=== PATIENT | female | born 1965 | race Caucasian/White ===

== ENCOUNTER 2016-08-01 15:51 | Emergency (ER) | payer OTHER ==
[~2016-08-01] VITALS: Ht 152.4 cm; Wt 85.7 kg
[~2016-08-01 15:51] MED LIST: ABILIFY 10 MG10 MG PO; ABILIFY 5MG5 MG PO; ADVAIR DISKUS 21 DSK INH; ALBUTEROL SULFAT3 M1 INH; ANTIVERT 25 MG25 MG PO; AZITHROMYCIN500 M3 PO; BACTROBAN OINT.15 GM TOP; BACTROBAN OINT.22 GM TOP; CLONAZEPAM0.5 MG PO; DOXYCYCLINE MO100 MG PO; EXALGO16 MG PO; FOLIC ACID 1 MG PO; GUAFENESIN400 MG PO; HUMALOG KW100 UNIT/1 SC; HUMALOG PEN100 U/ML SC; HYDROXYZINE HCL25 MG PO; HYDROXYZINE PAM25 M1 PO; HYDROXYZINE PAM25 MG PO; HYDROXYZINE PAM50 MG PO; IMDUR60 MG PO; INSULIN LISPRO SC; ISOSORBIDE DINITRATE PO; ISOSORBIDE MON120 M1 PO; JANUVIA 100MG100 MG PO; JANUVIA 50MG50 MG PO; JANUVIA50 M1 PO; KETOCONAZOLE 2120 ML TOP; LEVEMIR 10100 UNITS/ SC; LEVEMIR100 U/ML SC; LEVEMIR100 UNIT/1 SC; LEVOTHROID SO0.05 MG PO; LEVOTHROID0.2 MG PO; LEVOTHYROXIN0.125 MG PO; LEVOTHYROXINE0.2 M2 PO; LEVOTHYROXINE200 MC1 PO; LEVOTHYROXINE50 MCG PO; LISINOPRIL10 MG PO; LYRICA150 MG PO; MACROBID100 MG PO; MECLIZINE HCL25 MG PO; MEDROL DOSEPAK1 PAC PO; MELOXICAM15 MG PO; METOCLOPRAMIDE10 MG PO; METRONIDAZOLE500 M1 PO; MORPHINE SULFAT15 M1 PO; MORPHINE SULFAT15 M4 PO; MORPHINE SULFAT30 M6 PO; MS CONTIN15 M1 PO; MS CONTIN30 MG PO; NASONEX0.05 MG/Ac NAS; NITROSTAT0.4 MG SL; NOVOLOG100 U/ML SC; OMEPRAZOLE40 MG PO; OXYCODONE HCL E10 MG PO; OXYCODONE HCL10 M2 PO; OXYCODONE HYDRO10 M1 PO; OXYCODONE5 MG PO; PERPHENAZINE4 MG PO; PERPHENAZINE8 MG PO; PHENERGAN12.5 MG PO; PHENERGAN25 M2 PR; PRAZOSIN HCL2 M1 PO; PRAZOSIN HYDROCH2 MG PO; PREDNISONE 20MG20 MG PO; PREDNISONE10 M2 PO; PRILOSEC40 M1 PO; PROVENTIL0.09 MG/A1 INH; PSYCH MED; RELPAX 40MG40 MG PO; REMERON 15MG TA15 MG PO; ROBITUSSIN W/CO10 ML PO; SENSIPAR30 M1 PO; SIMVASTATIN20 M2 PO; SIMVASTATIN20 MG PO; SINGULAIR10 MG PO; SYMBICORT 80/4.1 PUF INH; SYNTHROID0.025 MG PO; SYNTHROID175 MCG PO; TESSALON PERLE100 MG PO; TOPIRAMATE25 MG PO; TRAMADOL50 MG PO; TRAZODONE100 MG PO; TRAZODONE150 MG PO; TRIAMCINOL0.1 %/453 TOP; TYLENOL #31 TAB PO; VENTOLIN1 PUF INH; VIBRAMYCIN 100100 MG PO; VIBRAMYCIN100 MG PO; VITAMIN D2000 UNIT PO; VITAMIN D50000 I1 PO; VOLTAREN GEL1% TOP; ZITHROMAX Z-PA250 M1 PO; ZOFRAN 4 MG TABL4 MG PO; ZOFRAN ODT4 M1 PO; ZOFRAN4 M1 SL; [UNRECOGNIZED DRUG - OTHER] PO; [UNRECOGNIZED DRUG - OTHER] PO
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
--- NOTE | 2016-08-01 17:20 | RADIOLOGY REPORT ---
EXAMINATION: XR LUMBOSACRAL SPINE CLINICAL INFORMATION: History of fall, left-sided low back pain. COMPARISON: None. TECHNIQUE: 2 views of the lumbosacral spine. FINDINGS: Mild thoracolumbar dextroscoliosis is present. The height of the lumbar vertebrae is well-maintained. Decreased disc height, endplate osteophyte formations, consistent with mild multilevel degenerative spondylosis related changes are noted at L3-L4, L4-L5. Minimal degenerative spondylosis related changes are noted within the remainder of the lumbosacral spine. The posterior appendages are intact. The paraspinal soft tissues are unremarkable. Postsurgical changes of likely prior cholecystectomy is noted. IMPRESSION: 1. No radiographic evidence of any acute compression fracture of the lumbar vertebrae. 2. Mild thoracolumbar, upper lumbar dextroscoliosis and superimposed mild multilevel degenerative spondylosis.
[2016-08-01] MEDS ORDERED: OXYCODONE HCL5 M1 PO (17:47)
[2016-08-01] MEDS ORDERED: NAPROSYN500 M1 PO (17:47)
[2016-08-01 18:02] VITALS: BP 128/70
== END 2016-08-01 18:03 ==
LOC: ERH 15:51
DX: M54.5 Low back pain (principal)
CPT/HCPCS: 72100

== ENCOUNTER 2016-08-08 13:00 | Emergency (ER) | payer OTHER ==
[~2016-08-08] VITALS: Ht 152.4 cm; Wt 85.7 kg
[~2016-08-08 13:00] MED LIST changes: +NAPROSYN500 M1 PO; +OXYCODONE HCL5 M1 PO
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
[2016-08-08] MEDS ORDERED: KETOROLAC TROME10 M1 PO (15:35)
[2016-08-08 15:50] VITALS: BP 138/80
== END 2016-08-08 15:55 ==
LOC: ERH 13:00
DX: M54.5 Low back pain (principal)
CPT/HCPCS: 96372; J1885

== ENCOUNTER 2016-08-18 20:40 | Emergency (ER) | payer OTHER ==
[~2016-08-18] VITALS: Ht 152.4 cm; Wt 85.3 kg
[~2016-08-18 20:40] MED LIST changes: +KETOROLAC TROME10 M1 PO
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
--- NOTE | 2016-08-18 22:24 | CT SCAN REPORT ---
EXAMINATION: CT HEAD WITHOUT CONTRAST CLINICAL INFORMATION: Head injury with headaches. COMPARISON: Head CT 03/20/2015. TECHNIQUE: Contiguous axial imaging was performed from the skull base to vertex without intravenous administration of contrast. 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 There is no intracranial hemorrhage, hydrocephalus, extra-axial surface collection, midline shift, or other herniation pattern. Garza to white matter differentiation is diffusely maintained without evidence of an evolved acute territorial infarct. The basilar cisterns are preserved. No significant soft tissue abnormality. No acute osseous abnormality. The paranasal sinuses and the mastoid air cells are well-aerated. IMPRESSION: No acute intracranial abnormality. 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
[2016-08-18 23:01] LABS: ABSOLUTE BASOPHIL COUNT 0 /CUMM (0.0-0.2); ABSOLUTE EOSINOPHIL COUNT 0.4 /CUMM (0.0-0.7); ABSOLUTE GRANULOCYTE CT 3.7 /CUMM (1.4-6.5); ABSOLUTE LYMPH COUNT 2.4 /CUMM (1.2-3.4); ABSOLUTE MONOCYTE COUNT 0.6 /CUMM (0.10-0.60); BASOPHIL % 0.6 % (0.0-2.0); EOSINOPHIL % 5.9 % (0-5); GRANULOCYTE % 51.8 % (42.2-75.2); HEMATOCRIT 43.7 % (37-47); MEAN CORPUSCULAR HGB 26.7 PG (27.0-31.0); MEAN CORPUSCULAR HGB CONC 32.8 G/DL (33.0-37.0); MEAN CORPUSCULAR VOLUME 81.6 FL (81.0-99.0); MEAN PLATELET VOLUME 10.7 FL (7.4-10.4); PLATELET COUNT 177 /CUMM (130-400); RBC DISTRIBUTION WIDTH 15.6 % (11.5-14.5); RED BLOOD CELL CT 5.36 /CUMM (4.20-5.40); WHITE BLOOD CELL COUNT 7.2 /CUMM (4.8-10.8)
[2016-08-18] MEDS ORDERED: CIPRO500 M1 PO (23:10)
[2016-08-18 23:34] VITALS: BP 138/84
== END 2016-08-18 23:35 ==
LOC: ERH 20:40
PROVIDERS: Pediatrics
DX: N39.0 Urinary tract infection, site not specified (principal); S09.90XA Unspecified injury of head, initial encounter; R82.99 Other abnormal findings in urine; W19.XXXA Unspecified fall, initial encounter
CPT/HCPCS: 81001; 81025; 96372; J1815

== ENCOUNTER 2016-08-29 12:10 | Emergency (ER) | payer OTHER ==
[~2016-08-29] VITALS: Ht 152.4 cm; Wt 85.3 kg
[~2016-08-29 12:10] MED LIST changes: +CIPRO500 M1 PO
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
[2016-08-29 13:33] LABS: ABSOLUTE BASOPHIL COUNT 0 /CUMM (0.0-0.2); ABSOLUTE EOSINOPHIL COUNT 0.2 /CUMM (0.0-0.7); ABSOLUTE GRANULOCYTE CT 6.8 /CUMM (1.4-6.5); ABSOLUTE LYMPH COUNT 2.2 /CUMM (1.2-3.4); ABSOLUTE MONOCYTE COUNT 0.6 /CUMM (0.10-0.60); BASOPHIL % 0.5 % (0.0-2.0); EOSINOPHIL % 1.9 % (0-5); GRANULOCYTE % 69.1 % (42.2-75.2); HEMATOCRIT 48.8 % (37-47); MEAN CORPUSCULAR HGB 26.7 PG (27.0-31.0); MEAN CORPUSCULAR HGB CONC 33.5 G/DL (33.0-37.0); MEAN CORPUSCULAR VOLUME 79.8 FL (81.0-99.0); MEAN PLATELET VOLUME 10.3 FL (7.4-10.4); PLATELET COUNT 185 /CUMM (130-400); RBC DISTRIBUTION WIDTH 15.6 % (11.5-14.5); RED BLOOD CELL CT 6.12 /CUMM (4.20-5.40); WHITE BLOOD CELL COUNT 9.8 /CUMM (4.8-10.8)
[2016-08-29 14:34] VITALS: BP 97/63
== END 2016-08-29 14:57 ==
LOC: ERH 12:10
PROVIDERS: Emergency Medicine
DX: E10.65 Type 1 diabetes mellitus with hyperglycemia (principal); J40 Bronchitis, not specified as acute or chronic; F17.210 Nicotine dependence, cigarettes, uncomplicated
CPT/HCPCS: 1263; 81003

== ENCOUNTER 2017-02-17 18:30 | Emergency (ER) | payer OTHER ==
[~2017-02-17 18:30] MED LIST changes: +ABILIFY10 M1 PO; +ALBUTEROL2.5 MG/3 M INH/SOL; +ASPIRIN EC81 M1 PO; -FOLIC ACID 1 MG PO; +FOLIC ACID1 M1 PO; +FUROSEMIDE40 M1 PO; +HYDROXYZINE HCL25 M2 PO; -HYDROXYZINE HCL25 MG PO; +HYDROXYZINE PAM50 M1 PO; -HYDROXYZINE PAM50 MG PO; +LISINOPRIL10 M1 PO; -LISINOPRIL10 MG PO; +LYRICA150 M1 PO; -LYRICA150 MG PO; -METOCLOPRAMIDE10 MG PO; +NALTREXONE HCL50 M1 PO; +NASONEX17 GM NASB; +NITROSTAT0.4 M1 SL; -NITROSTAT0.4 MG SL; +NIZORAL120 ML TOP; +OMEPRAZOLE40 M1 PO; -OMEPRAZOLE40 MG PO; +PERPHENAZINE4 M1 PO; +PERPHENAZINE8 M1 PO; -PERPHENAZINE8 MG PO; +PROVENTIL HFA6.7 GM INH; +REGLAN10 M1 PO; -REMERON 15MG TA15 MG PO; +REMERON15 M2 PO; +RESTASIS1 EACH OU; +SINGULAIR10 M1 PO; +SYMBICORT 80-10.2 GM INH; +TRAZODONE HCL100 M1 PO; -VOLTAREN GEL1% TOP; +VOLTAREN100 GM TOP
[2017-02-17 18:41] VITALS: BP 125/86
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
[2017-02-17] MEDS ORDERED: KEFLEX500 M1 PO ×2 (20:40→20:54)
[2017-02-17] MEDS ORDERED: IBUPROFEN800 M1 PO ×2 (20:41→20:54)
[2017-02-19] MEDS ORDERED: KEFLEX500 M1 PO (14:20)
== END 2017-02-17 20:54 ==
LOC: ERH 18:30
DX: M79.642 Pain in left hand (principal)

== ENCOUNTER 2017-10-07 14:05 | Emergency (ER) | payer OTHER ==
[~2017-10-07] VITALS: Ht 152.4 cm; Wt 86.2 kg
[~2017-10-07 14:05] MED LIST changes: +IBUPROFEN800 M1 PO; +KEFLEX500 M1 PO; +MARI INH; +MOBIC15 M1 PO; +PERCOCET 5-3251 EACH PO; +VESICARE10 MG PO; +ZITHROMAX250 M2 PO; +ZOFRAN ODT4 M1 SL
[2017-10-07 14:25] VITALS: BP 119/82
== END 2017-10-07 16:17 | disposition admitted as inpatient to this hospital (09) ==
LOC: ERH 14:05
DX: F32.9 Major depressive disorder, single episode, unspecified (principal)
CPT/HCPCS: 80307; G0480

== ENCOUNTER 2017-11-08 14:08 | Emergency (ER) | payer OTHER ==
[~2017-11-08] VITALS: Ht 152.4 cm; Wt 80.3 kg
[2017-11-08 16:12] LABS: ABSOLUTE BASOPHIL COUNT 0.1 /CUMM (0.0-0.2); ABSOLUTE EOSINOPHIL COUNT 0.1 /CUMM (0.0-0.7); ABSOLUTE GRANULOCYTE CT 8.5 /CUMM (1.4-6.5); ABSOLUTE LYMPH COUNT 2.1 /CUMM (1.2-3.4); ABSOLUTE MONOCYTE COUNT 0.6 /CUMM (0.10-0.60); BASOPHIL % 0.6 % (0.0-2.0); EOSINOPHIL % 0.9 % (0-5); GRANULOCYTE % 74.8 % (42.2-75.2); HEMATOCRIT 46.2 % (37-47); MEAN CORPUSCULAR HGB 29.4 PG (27.0-31.0); MEAN CORPUSCULAR HGB CONC 33.3 G/DL (33.0-37.0); MEAN CORPUSCULAR VOLUME 88.2 FL (81.0-99.0); MEAN PLATELET VOLUME 10.1 FL (7.4-10.4); PLATELET COUNT 208 /CUMM (130-400); RBC DISTRIBUTION WIDTH 14.4 % (11.5-14.5); RED BLOOD CELL CT 5.24 /CUMM (4.20-5.40); WHITE BLOOD CELL COUNT 11.3 /CUMM (4.8-10.8)
--- NOTE | 2017-11-08 17:26 | CT SCAN REPORT ---
EXAMINATION: CT ABDOMEN AND PELVIS WITHOUT CONTRAST CLINICAL INFORMATION: Right lower quadrant abdominal pain. Assess for appendicitis. COMPARISON: 06/28/2017. TECHNIQUE: Multidetector volumetric imaging was performed from the superior aspect of the liver through the pubic symphysis. Sagittal and coronal reformatted images were obtained on the technologist's workstation. DLP: 718 mGy-cm FINDINGS: LUNG BASES: Minor dependent changes in the right lung base. The imaged heart and pericardium appear unremarkable. LIVER, GALLBLADDER, AND BILIARY TREE: The liver is normal in size, shape, and attenuation. No focal hepatic lesion or biliary ductal dilatation is present. There has been prior cholecystectomy. PANCREAS: Unremarkable. SPLEEN: Unremarkable. ADRENAL GLANDS: Unremarkable. KIDNEYS AND URETERS: The kidneys are normal in size, shape, and attenuation. No hydronephrosis, hydroureter, or calculi seen. No perinephric stranding. BLADDER: Under distended. Unremarkable. GASTROINTESTINAL TRACT: The small and large bowel are normal in caliber without inflammatory change. A few distal colonic diverticula are noted. The appendix is normal in caliber without stranding. There is some minor high density material within it likely inspissated debris. ABDOMINAL WALL: No significant hernia is appreciated. LYMPH NODES: No adenopathy. VASCULAR: The caliber of the aorta is normal. PELVIC VISCERA: Unremarkable. OSSEOUS STRUCTURES: No acute osseous abnormalities. There is a mild dextroconvex thoracolumbar scoliosis and multilevel spondylosis. Near-complete intervertebral disc height loss asymmetrically on the left at L1-L2 and asymmetrically on the right at L3-L4 and bilaterally at L4-L5. At L4-L5 a partially calcified disc protrusion moderately narrows the canal. IMPRESSION: No acute intra-abdominal or intrapelvic pathology. Normal appendix. Multilevel lumbar spondylosis and mild dextroconvex scoliosis with a moderate canal stenosis at L4-L5.
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
[2017-11-08] MEDS ORDERED: ZOFRAN ODT4 M1 SL (19:16)
[2017-11-08 19:39] VITALS: BP 110/68
== END 2017-11-08 19:42 ==
LOC: ERH 14:08
PROVIDERS: Physician Assistant Medical
DX: R11.2 Nausea with vomiting, unspecified (principal)
CPT/HCPCS: 74176; 96374; 96375; J0131; J1815; J2405

== ENCOUNTER 2017-11-28 00:52 | Emergency (ER) | payer OTHER ==
[~2017-11-28] VITALS: Ht 152.4 cm; Wt 82.1 kg
[~2017-11-28 00:52] MED LIST changes: +PERPHENAZINE2 M1 PO; -PERPHENAZINE8 M1 PO
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
[2017-11-28 05:58] VITALS: BP 102/64
[2017-11-29] MEDS ORDERED: LEVOTHYROXINE200 MC1 PO (23:36)
[2018-03-04] MEDS ORDERED: OMEPRAZOLE20 M3 PO (19:45)
[2018-03-04] MEDS ORDERED: ZOFRAN ODT4 M1 SL (19:45)
[2018-03-04] MEDS ORDERED: DICYCLOMINE HCL10 M1 PO (19:46)
== END 2017-11-28 05:59 ==
LOC: ERH 00:52
DX: E11.65 Type 2 diabetes mellitus with hyperglycemia (principal)
CPT/HCPCS: 96372

== ENCOUNTER 2017-11-29 14:55 | Inpatient (IN) | payer OTHER ==
[~2017-11-29] VITALS: Ht 165.1 cm; Wt 84.8 kg
[2017-11-29 16:42] LABS: ABSOLUTE BASOPHIL COUNT 0 /CUMM (0.0-0.2); ABSOLUTE EOSINOPHIL COUNT 0.3 /CUMM (0.0-0.7); ABSOLUTE GRANULOCYTE CT 7.1 /CUMM (1.4-6.5); ABSOLUTE LYMPH COUNT 2.4 /CUMM (1.2-3.4); ABSOLUTE MONOCYTE COUNT 0.7 /CUMM (0.10-0.60); BASOPHIL % 0.4 % (0.0-2.0); EOSINOPHIL % 2.4 % (0-5); GRANULOCYTE % 67.8 % (42.2-75.2); HEMATOCRIT 40.2 % (37-47); MEAN CORPUSCULAR HGB 28.5 PG (27.0-31.0); MEAN CORPUSCULAR HGB CONC 32.8 G/DL (33.0-37.0); MEAN CORPUSCULAR VOLUME 86.9 FL (81.0-99.0); MEAN PLATELET VOLUME 10.2 FL (7.4-10.4); PLATELET COUNT 222 /CUMM (130-400); RBC DISTRIBUTION WIDTH 14.2 % (11.5-14.5); RED BLOOD CELL CT 4.63 /CUMM (4.20-5.40); WHITE BLOOD CELL COUNT 10.5 /CUMM (4.8-10.8)
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
--- NOTE | 2017-11-29 20:30 | RADIOLOGY REPORT ---
EXAMINATION: XR PORTABLE CHEST CLINICAL INFORMATION: Hypotension. COMPARISON: Chest x-ray dated 10/27/2017 and 06/28/2017. TECHNIQUE: Portable AP semiupright view of the chest was obtained. FINDINGS: The cardiomediastinal silhouette is enlarged, likely accentuated by the portable technique. Tortuosity and ectasia of the aorta is also seen. Lungs bilaterally are symmetrically expanded and are suboptimally evaluated due to suboptimal technique and patient's body habitus. There is some linear opacity seen in the lung bases bilaterally, likely representing subsegmental atelectasis. No definite focal consolidation, effusion or pneumothorax is seen. Bony structures are unremarkable. IMPRESSION: Limited exam. Findings of bibasilar subsegmental atelectasis, ectatic and tortuous aorta, and prominent heart size seen.
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
[2017-11-29] MEDS ORDERED: LEVOTHYROXINE200 MC1 PO (23:36)
--- NOTE | 2017-11-30 00:26 | CT SCAN REPORT ---
EXAMINATION: CT HEAD WITHOUT CONTRAST CLINICAL INFORMATION: Fall with head trauma and headache. COMPARISON: 08/13/2017 TECHNIQUE: Contiguous axial imaging was performed from the skull base to vertex without intravenous contrast. DLP: 620 mGy-cm. FINDINGS: There is no evidence of acute intracranial hemorrhage or territorial infarction. No abnormal mass effect or midline shift is seen. Chronic high left parietal infarct. Garza to white matter differentiation is otherwise well preserved. No extra-axial fluid collections are identified. No hydrocephalus. No significant volume loss. There is no abnormal attenuation within the brain parenchyma. The osseous structures and soft tissues are normal. The mastoid air cells and visualized portions of the paranasal sinuses are well aerated. IMPRESSION: No acute intracranial pathology.
[2017-11-30 02:10] VITALS: BP 104/50
[2017-11-30] MEDS ORDERED: WELLBUTRIN SR150 M1 PO (02:54)
--- NOTE | 2017-11-30 04:01 | Admission Certification ---
Admission Certification Certification Statement - As attending physician, I certify that at the time of - admission, based on clinical presentation, severity of - symptoms, need for further diagnostic testing and - therapeutic interventions, and risk of adverse outcomes - without in-hospital treatment, in my clinical assessment, - this patient requires an acute hospital stay for a minimum - of two nights or longer. I have also considered psychsocial - factors such as support system, advanced age, financial - issues, cognitive issues, and failed out-patient treatments, - past re-admission history, safety of patient, and lack of - compliance as applicable. Specific rationale supporting this admission is: Nausea, vomiting, hypotension, bradycardia, acute kidney injury
[2017-11-30 07:21] VITALS: BP 112/68
--- NOTE | 2017-11-30 08:09 | PN- Housestaff ---
Rodrigo CERVANTES,Elias 11/30/17 0809: Subjective Follow-up For: hypotension bradycardia STEPHY Tele-Events Since Last Visit: sinus rhythm Subjective: denies abdominal pain or nausea blood pressure improved with IVFs no more episodes of bradycardia no new complaints Review of Systems Constitutional: Reports: see HPI. Objective Last 24 Hrs of Vital Signs/I&O Vital Signs Date Time Temp Pulse Resp B/P B/P Pulse O2 O2 Flow FiO2 Mean Ox Delivery Rate 11/30 720 97.8 66 20 112/68 96 Room Air 11/30 0210 98.2 54 20 104/50 95 Room Air 11/29 2349 97.8 66 20 95/60 94 Room Air 11/29 2148 90/60 05/08 2126 56 91/55 /08 2125 98.1 56 20 91/55 92 Room Air 11/29 1916 97.9 64 22 98/46 92 Room Air 11/29 1813 78/56 11/29 1550 18 80/40 08 1534 98.7 87 18 74/51 97 Room Air Room Air Intake & Output 11/30 1600 11/30 0811/30 0000 Intake Total 1105 0 Output Total Balance 1105 0 Intake, IV 625 Intake, Oral 480 0 Patient 83.092 kg Weight Weight Bed scale Measurement Method Physical Exam General Appearance: Alert, Oriented X3, Cooperative, No Acute Distress, face is flushed Lungs: Clear to Auscultation, Normal Air Movement Abdomen: Normal Bowel Sounds, Soft, No Tenderness, No Masses Extremities: No Clubbing, No Cyanosis, No Edema, Normal Pulses Current Medications: Current Medications Sig/Zoila Start time Last Medication Dose Route Stop Time Status Admin Acetaminophen 650 MG Q6P PRN 11/29 2245 AC PO Acetaminophen 0 .STK-MED ONE 11/29 1638 DC IV Acetaminophen 1,000 MG ONCE ONE 11/29 1615 DC 11/29 N/A 1 UNIT IV 11/29 1629 1642 Albuterol Sulfate 2 PUF Q4H PRN 11/29 2330 AC INH Aspirin Buffered 81 MG DAILY 11/30 899 AC PO Budesonide/ 2 PUF BID 11/30 899 CAN Formoterol Fumarate INH Bupropion HCl 150 MG BID 11/30 899 AC PO Heparin Sodium 5,000 UNIT Q8 11/30 599 AC (Porcine) SC Hydrocodone Bitart/ 1 TAB Q6P PRN 11/29 2245 AC Acetaminophen PO Insulin Aspart 0 TIDAC 12/01 799 AC SC Insulin Detemir 14 UNITS BID 11/30 899 DC SC Insulin Detemir 8 UNITS BID 11/30 899 AC SC Levothyroxine Sodium 0.2 MG DAILY AC 11/30 699 AC PO Mirtazapine 15 MG QPM 11/30 2100 AC PO Nicotine 7 MG DAILY 11/30 899 AC TOP Omeprazole 40 MG DAILY AC 11/30 699 AC 11/30 PO 0516 Ondansetron HCl 4 MG Q8P PRN 11/29 2245 AC IV Ondansetron HCl 0 .STK-MED ONE 11/29 1638 DC .ROUTE Ondansetron HCl 4 MG ONCE ONE 11/29 1615 DC 11/29 IV 11/29 1616 1642 Pregabalin 150 MG BID 11/30 899 AC PO Sodium Chloride 1,000 ML Q8H 11/30 0130 AC 11/30 IV 0220 Sodium Chloride 1,000 ML BOLUS ONE 11/29 2200 DC / IV 11/29 2259 2323 Sodium Chloride 1,000 ML BOLUS ONE 11/29 2130 DC 05/ IV 11/29 2229 2150 Sodium Chloride 1,000 ML BOLUS ONE 11/29 1845 DC / IV 11/29 1944 1800 Sodium Chloride 1,000 ML BOLUS ONE 11/29 1600 DC 05/08 IV / 1659 1610 Last 24 Hrs of Lab/Bhavin Results Last 24 Hrs of Labs/Mics: Laboratory Tests 11/30/17 0645: Troponin I Cancelled 11/30/17 0645: Anion Gap 8, Estimated GFR 32 L, BUN/Creatinine Ratio 18.8, Troponin I < 0.01 11/30/17 0047: Anion Gap 8, Estimated GFR 28 L, BUN/Creatinine Ratio 20.0, Troponin I < 0.01 11/29/17 1917: Urine Opiates Screen < 100, Methadone Screen 54, Barbiturate Screen < 60, Ur Phencyclidine Scrn < 6.00, Amphetamines Screen 409, U Benzodiazepines Scrn < 85, Urine Cocaine Screen < 50, Urine Cannabis Screen 69.30 H, Urine Color YEL, Urine Clarity HAZY H, Urine pH 6.0, Ur Specific [place] 1.015, Urine Protein NEG, Urine Ketones NEG, Urine Nitrite NEG, Urine Bilirubin NEG, Urine Urobilinogen 0.2, Ur Leukocyte Esterase NEG, Ur Microscopic SEDIMENT EXAMINED, Urine RBC RARE, Urine WBC 1-3 H, Ur Epithelial Cells MANY H, Urine Bacteria MANY H, Urine Mucus RARE, Urine Hemoglobin NEG, Urine Glucose 500 H 11/29/17 1915: Lactic Acid 0.7 11/29/17 1610: Anion Gap 12, Estimated GFR 21 L, BUN/Creatinine Ratio 17.9, Glucose 146 H, Hemoglobin A1c 12.0 H, Lactic Acid 1.7, Calcium 11.5 H, Phosphorus 5.2 H, Magnesium 1.8, Total Bilirubin 0.8, AST 22, ALT 24, Alkaline Phosphatase 101, Total Protein 7.2, Albumin 4.2, Globulin 3.0, Albumin/Globulin Ratio 1.4, Amylase 33, Lipase 27, TSH 4.300 H, Free T4 2.45 H, Cortisol PM Sample 21.7 H , CBC w Diff NO MAN DIFF REQ, RBC 4.63, MCV 86.9, MCH 28.5, MCHC 32.8 L, RDW 14.2, MPV 10.2, Gran % 67.8, Lymphocytes % 23.2, Monocytes % 6.2, Eosinophils % 2.4, Basophils % 0.4, Absolute Granulocytes 7.1 H, Absolute Lymphocytes 2.4, Absolute Monocytes 0.7 H, Absolute Eosinophils 0.3, Absolute Basophils 0 Microbiology 11/30 0754 UPPER RESP: Surveillance Culture - ORD 11/30 0754 GI: Surveillance Culture - ORD 11/30 0413 NASOPHARYN: Influenza Virus A & B Rapid Smear - COMP 11/29 192 BLOOD: Blood Culture - RECD 11/29 175 BLOOD: Blood Culture - RECD Assessment/Plan Assessment: 50 year old female with past medical history significant for diabetes mellitus, asthma, hypertension, PTSD, schizoaffective disorder, hypothyroidism, opioid dependence for complex regional pain syndrome, history of alcohol dependence, and primary hyperparathyroidism who was sent in by a physician with hypotension after being evaluated with complaints of weakness, lightheadedness, nausea and vomiting. Hypotension/Bradycardia Blood pressure 80/40, pulse 56 Monitor on telemetry Intravascular volume resuscitation Continue maintenance fluids Check orthostatic vital signs Troponins and EKGs negative x 2 for myocardial ischemia Cardiology consultation Check TSH/cortisol Likely hypovolemic hypotension with poorly controlled DM, gastroparesis, recent vomiting STEPHY: Creatinine 2.4 on presentation, improved to 1.7 this morning with intravenous fluids 3 L normal saline IV bolus in the ED Continue maintenance fluids Trend renal function Avoid nephrotoxins, lisinopril and lasix held Diabetes mellitus: Continue levemir 6 units BID Diabetic diet Accuchecks TIDAC Novolog insulin sliding scale Hypercalcemia: Calcium 11.5, treated with IVFs Primary hyperparathyroidism Continue cinacalcet Repeat calcium, magnesium, and phosphorus in the morning Hypertension: Lisinopril held Hyperlipidemia: Continue statin therapy Hypothyroidism: Continue synthroid 200mcg PTSD and schizoaffective disorder: Continue fluphenazine 5mg am 10mg pm Continue benztropine, prazosin, bupropion, hydroxyzine, and mirtazapine Diabetic diet DVT ppx-heparin 5000 units subcutaneous q8h Full code Problem List: 1. Acute kidney injury 2. Hypotension 3. DM w/ gastroparesis & neuropat 4. Nausea and vomiting Pain Ratin Pain Location: n/a Pain Goal: Pain 4 or less Pain Plan: prn Tomorrow's Labs & Rationales: cbc, bep Randy Herndon MD 11/30/17 1125: Attending MD Review Statement Attending Statement Attending MD Statement: examined this patient, discuss w/resident/PA/COMMUNICATIONS ASSISTANT, agreed w/resident/PA/COMMUNICATIONS ASSISTANT, reviewed EMR data (avail) Attending Assessment/Plan: 52F PMH poorly controlled Type 2 DM, HTN, HLD, asthma, diabetic gastroparesis, PTSD/schizoaffective disorder, hypothyroidism, complex regional pain syndrome on Lyrica and medical marijuana, primary hyperparathyroidism admitted with hypotension with intractable nausea and vomiting with STEPHY. Patient looks well today, does not have any complaints. Creatinine improved slightly. Hypotension resolved. Did not tolerate breakfast. Sinus bradycardia overnight to 50's, resolved today. HbA1c is 12, overnight fingerstick 155. 1. Hypotension 2. Dehydration 3. Acute gastroenteritis 4. Diabetic gastroparesis 5. STEPHY 6. Sinus bradycardia Plan - Continue on telemetry for now, if bradycardia remains absent can consider discontinuing tomorrow - Verify home medications - IV hydration - Zofran PRN nausea - Reglan PRN vomiting - Monitor renal function - GI and cardiology consults - Continue home medications - DVT PPx - IV hydration - Zofran PRN nausea - Reglan PRN vomiting - Monitor renal function - GI and cardiology consults - Continue home medications - DVT PPx
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
[2017-11-30] MEDS ORDERED: SENSIPAR30 M1 PO (14:42)
[2017-11-30 16:00] VITALS: BP 92/50
[2017-11-30 18:05] VITALS: BP 102/68
[2017-12-01 06:51] VITALS: BP 128/78
--- NOTE | 2017-12-01 07:14 | PN- Housestaff ---
Rodrigo CERVANTES,Elias 12/01/17 0714: Subjective Follow-up For: hypotension bradycardia STEPHY gastroenteritis/gastroparesis/N/V Tele-Events Since Last Visit: sinus rhythm/sinus kallie (into mid 40s this morning) Subjective: patient has no complaints no more hypotension or lightheaded feeling no more episodes of nausea or vomiting anxious to be discharged Review of Systems Constitutional: Reports: see HPI. Objective Last 24 Hrs of Vital Signs/I&O Vital Signs Date Time Temp Pulse Resp B/P B/P Pulse O2 O2 Flow FiO2 Mean Ox Delivery Rate 12/01 0551 98.1 59 20 128/78 93 Room Air 11/30 2043 56 124/70 11/30 1805 102/68 11/30 1600 98.2 60 18 92/50 95 Room Air 11/30 1157 Room Air 11/30 1129 95 Room Air 11/30 0900 Room Air Intake & Output 12/01 1600 12/01 0800 12/01 0000 Intake Total 600 2100 Output Total Balance 600 2100 Intake, IV 300 1500 Intake, Oral 300 600 Number 1 Bowel Movements Patient 84.822 kg Weight Weight Bed scale Measurement Method Physical Exam General Appearance: Alert, Oriented X3, Cooperative, No Acute Distress, face flushed, obese Cardiovascular: Regular Rate, Normal S1, Normal S2, No Murmurs Lungs: Clear to Auscultation, Normal Air Movement Abdomen: Normal Bowel Sounds, Soft, No Tenderness, No Masses Extremities: No Clubbing, No Cyanosis, No Edema, Normal Pulses Current Medications: Current Medications Sig/Zoila Start time Last Medication Dose Route Stop Time Status Admin Acetaminophen 650 MG .STK-MED ONE 11/30 1011 DC PO 11/30 101 Acetaminophen 650 MG Q6P PRN 11/29 2245 AC 12/01 PO 0419 Albuterol Sulfate 3 ML BID 11/30 2099 AC 11/30 INH 2054 Albuterol Sulfate 2 PUF Q4H PRN 11/29 2330 AC INH Aspirin Buffered 81 MG DAILY 11/30 899 AC 12/01 PO 08 Benztropine Mesylate 0.5 MG AT BEDTIME 11/30 2099 AC 11/30 PO 204 Bupropion HCl 150 MG DAILY 12/01 899 AC 12/01 PO 0824 Bupropion HCl 150 MG BID 11/30 899 DC 11/30 PO 0946 Cinacalcet 30 MG DAILY 11/30 1056 AC 12/01 PO 0824 Fluphenazine HCl 10 MG AT BEDTIME 11/30 2100 AC 11/30 PO 2042 Fluphenazine HCl 5 MG DAILY 11/30 1052 AC 12/01 PO 0824 Heparin Sodium 5,000 UNIT Q8 11/30 0600 AC (Porcine) SC Hydrocodone Bitart/ 1 TAB Q6P PRN 11/29 2245 DC Acetaminophen PO Hydroxyzine HCl 25 MG TID PRN 11/30 1100 AC PO Insulin Aspart 0 TIDAC 11/30 1700 AC 11/30 SC 1721 Insulin Aspart 0 TIDAC 11/30 0800 DC 11/30 SC 1156 Insulin Detemir 6 UNITS BID 11/30 2100 DC SC Insulin Detemir 10 UNITS BID 11/30 2100 AC 12/01 SC 0824 Insulin Detemir 8 UNITS BID 11/30 0900 DC 11/30 SC 0942 Ipratropium [place] 2.5 ML BID 11/30 2100 AC 11/30 INH 2054 Levothyroxine Sodium 0.2 MG DAILY AC 11/30 0700 AC 12/01 PO 0604 Metoclopramide HCl 10 MG 4 TIMES/DAY PRN 11/30 1500 AC PO Mirtazapine 15 MG QPM 11/30 2100 AC 11/30 PO 2115 Montelukast Sodium 10 MG AT BEDTIME 11/30 2100 AC 11/30 PO 204 Montelukast Sodium 10 MG AT BEDTIME 11/30 2100 CAN PO Montelukast Sodium 10 MG DAILY 11/30 1442 DC PO Nicotine 7 MG DAILY 11/30 899 AC TOP Omeprazole 40 MG DAILY AC 11/30 0700 AC 11/30 PO 0516 Ondansetron HCl 4 MG Q8P PRN 11/29 2245 AC IV Prazosin HCl 2 MG AT BEDTIME 11/30 2100 AC 11/30 PO 2043 Pregabalin 150 MG BID 11/30 899 AC 12/01 PO 0824 Sodium Chloride 1,000 ML Q8H 11/30 0130 DC 11/30 IV 11/30 2200 1722 Last 24 Hrs of Lab/Bhavin Results Last 24 Hrs of Labs/Mics: Laboratory Tests 12/01/17 0705: Sodium Pending, Potassium Pending, Chloride Pending, Carbon Dioxide Pending, Anion Gap Pending, BUN Pending, Creatinine Pending, BUN/Creatinine Ratio Pending , Calcium Pending, Phosphorus Pending, Magnesium Pending Assessment/Plan Assessment: 50 year old female with past medical history significant for diabetes mellitus, asthma, hypertension, PTSD, schizoaffective disorder, hypothyroidism, opioid dependence for complex regional pain syndrome, history of alcohol dependence, and primary hyperparathyroidism who was sent in by a physician with hypotension after being evaluated with complaints of weakness, lightheadedness, nausea and vomiting. Hypotension: Likely hypovolemic hypotension with poorly controlled DM, gastroparesis, recent vomiting History of gastroparesis, poorly controlled DM a1c 12, and probable gastroenteritis w chills Blood pressure 80/40, pulse 56 No arrhythmias on telemetry Received intravascular volume resuscitation and currently normotensive Antihypertensives held, ACEi/diuretics Troponins and EKGs negative x 2 for myocardial ischemia Bradycardia to HR 40s this morning, cardiology consulted, will obtain records f /u recs STEPHY: Creatinine 2.4 on presentation, improved to 1.1 this morning after intravenous fluids Continue to hold lisinopril and lasix Trend renal function Avoid nephrotoxins Likely prerenal secondary to recent vomiting (gastroenteritis) and medications Diabetes mellitus: On Levemir 10 units BID, patient states 14 bid, med claim 6 unit bid ([facility] ) Diabetic diet Accuchecks TIDAC, 100-295 Novolog insulin sliding scale Hemoglobin a1c 12 Endocrinology consulted Hypercalcemia: Calcium 11.5, treated with IVFs, resolved on AM labs Primary hyperparathyroidism Continue cinacalcet 30MG PO BID Replete magnesium Follow up with Dr. Carty as an outpatient, recommended parathyroidectomy Avoid diuretics and continue Vit D supplementation Hypertension: Lisinopril and lasix held Hypotensive on arrival, normotensive currently Hyperlipidemia: Continue statin therapy Hypothyroidism: Continue synthroid 200mcg PTSD and schizoaffective disorder: Continue fluphenazine 5mg am 10mg pm Continue benztropine, prazosin, bupropion, hydroxyzine, and mirtazapine Psychiatry consult pending for medication recommendations Diabetic diet DVT ppx-heparin 5000 units subcutaneous q8h Full code Problem List: 1. Diabetes mellitus 2. Hypotension 3. Acute kidney injury 4. Vomiting 5. DM w/ gastroparesis & neuropat Pain Ratin Pain Location: n/a Pain Goal: Pain 4 or less Pain Plan: prn Tomorrow's Labs & Rationales: bep if not discharged Randy Herndon MD 12/01/17 1035: Attending MD Review Statement Attending Statement Attending MD Statement: examined this patient, discuss w/resident/PA/CARDROOM HAND, agreed w/resident/PA/CARDROOM HAND, reviewed EMR data (avail) Attending Assessment/Plan: 52F PMH poorly controlled Type 2 DM, HTN, HLD, asthma, diabetic gastroparesis, PTSD/schizoaffective disorder, hypothyroidism, complex regional pain syndrome on Lyrica and medical marijuana, primary hyperparathyroidism admitted with hypotension with intractable nausea and vomiting with STEPHY. Improved today, tolerating diet, STEPHY resolved, sinus kallie in high 50's-low 60' s. 1. Hypotension 2. Dehydration 3. Acute gastroenteritis 4. Diabetic gastroparesis 5. STEPHY 6. Sinus bradycardia Plan - Discontinue telemetry, likely discharge later today if no intervention on parathyroid glands - Will adjust home medications - Monitor renal function as outpatient - Outpatient endocrine and cardiology follow up
--- NOTE | 2017-12-01 08:12 | PN- Student ---
Zohaib Bahena 12/01/17 0807: Subjective Subjective: No acute events overnight. Patient resting in bed. Patient feeling ready to be discharge. No nausea, vomiting, palpitation, dizziness or lightheaderness. Objective Objective: PE: General: obese alert and oriented HEENT: NCAT, anicteric sclera,moist oral mucosa, no exudate CVS: normal S1 and S2 Lungs: clear bilateral, no added sounds Abdomen: presented bowel sounds, soft, nontender , nondistended Extremities: patent pulses, no edema Results Results: Vital Signs Date Time Temp Pulse Resp B/P B/P Pulse O2 O2 Flow FiO2 Mean Ox Delivery Rate 12/01 0651 98.1 59 20 128/78 93 Room Air 11/30 2043 56 124/70 11/30 1805 102/68 11/30 1600 98.2 60 18 92/50 95 Room Air 11/30 1157 Room Air 11/30 1129 95 Room Air Intake & Output 12/01 1600 12/01 0800 12/01 0000 Intake Total 600 2100 Output Total Balance 600 2100 Intake, IV 300 1500 Intake, Oral 300 600 Number 1 Bowel Movements Patient 187 lb Weight Weight Bed scale Measurement Method Laboratory Tests 12/01/17 0705: Anion Gap 8, Estimated GFR 52 L, BUN/Creatinine Ratio 14.5, Calcium 9.9, Phosphorus 2.5, Magnesium 1.5 L 11/30/17 0645: Troponin I Cancelled 11/30/17 0645: Anion Gap 8, Estimated GFR 32 L, BUN/Creatinine Ratio 18.8, Troponin I < 0.01, WBC Cancelled, RBC Cancelled, Hgb Cancelled, Hct Cancelled, MCV Cancelled, MCH Cancelled, MCHC Cancelled, RDW Cancelled, Plt Count Cancelled, MPV Cancelled 11/30/17 0047: Anion Gap 8, Estimated GFR 28 L, BUN/Creatinine Ratio 20.0, Troponin I < 0.01 11/29/17 1917: Urine Opiates Screen < 100, Methadone Screen 54, Barbiturate Screen < 60, Ur Phencyclidine Scrn < 6.00, Amphetamines Screen 409, U Benzodiazepines Scrn < 85, Urine Cocaine Screen < 50, Urine Cannabis Screen 69.30 H, Urine Color YEL, Urine Clarity HAZY H, Urine pH 6.0, Ur Specific [place] 1.015, Urine Protein NEG, Urine Ketones NEG, Urine Nitrite NEG, Urine Bilirubin NEG, Urine Urobilinogen 0.2, Ur Leukocyte Esterase NEG, Ur Microscopic SEDIMENT EXAMINED, Urine RBC RARE, Urine WBC 1-3 H, Ur Epithelial Cells MANY H, Urine Bacteria MANY H, Urine Mucus RARE, Urine Hemoglobin NEG, Urine Glucose 500 H 11/29/17 1915: Lactic Acid 0.7 11/29/17 1610: Anion Gap 12, Estimated GFR 21 L, BUN/Creatinine Ratio 17.9, Glucose 146 H, Hemoglobin A1c 12.0 H, Lactic Acid 1.7, Calcium 11.5 H, Phosphorus 5.2 H, Magnesium 1.8, Total Bilirubin 0.8, AST 22, ALT 24, Alkaline Phosphatase 101, Total Protein 7.2, Albumin 4.2, Globulin 3.0, Albumin/Globulin Ratio 1.4, Amylase 33, Lipase 27, TSH 4.300 H, Free T4 2.45 H, Cortisol PM Sample 21.7 H , CBC w Diff NO MAN DIFF REQ, RBC 4.63, MCV 86.9, MCH 28.5, MCHC 32.8 L, RDW 14.2, MPV 10.2, Gran % 67.8, Lymphocytes % 23.2, Monocytes % 6.2, Eosinophils % 2.4, Basophils % 0.4, Absolute Granulocytes 7.1 H, Absolute Lymphocytes 2.4, Absolute Monocytes 0.7 H, Absolute Eosinophils 0.3, Absolute Basophils 0 Microbiology 11/30 753 UPPER RESP: Surveillance Culture - COLB 11/304 GI: Surveillance Culture - COLB 11/30 512 NASOPHARYN: Influenza Virus A & B Rapid Smear - COMP 11/29 192 BLOOD: Blood Culture - RES 11/29 1749 BLOOD: Blood Culture - RES Assessment/Plan Assessment: 50 y/o F with PMHx of Asthma, DM, HTN, schizoaffective disorder, PTSD, hypothyroidism, opioid dependant, alcohol dependant, primary hyperthyroidism, who recently evaluated by PCP for weakness, lightheaderness, nausea, vomiting and found to be hypotensive. Patient was sent to [facility] for further evaluation. At [facility], patient BP was in the 80's/40's. Patient was admitted to ICU yesterday ([facility] floor hold). Today patient is at [facility] floor for monitoring of bradycardia. Last 24 HR between 54-60. Plan: Hypotension: -Probably due to vomiting leading to hypovolemia -Patient last Hg A1C was 12, gastroparesis maybe contributing to nausea and vomiting -BP improving after IV fluid -orthostatic: Lying (84/54), Standing (104/66). Negative for orthostatic hypotension Synus Bradycardia: -Patient on Tely floor -HR improving STEPHY: -Creatinine of 2.4 on adnission, probably due to low volume 2/2 to vomiting/ gastroparesis -Creatinine 1.2 today -Creatinine levels improving after IV fluids -Encourage PO intake -Avoid nephrotoxic drugs Diabetes: -Hg A1C 12 -Cont. Levemir -Cont. Novolog -Accucheck Hx of Hypercalcemia: -Patient have hx of primary hyperparathyroidism -Hypercalcemia maybe contributing to emesis and constipation -F/U calcium, magnessium and phosphorus levels -Cont. Cinacalcet -Consult Dr. Carty and follow-up recs Hx of HTN: -Lisinopril held b/c STEPHY Hx of hyperlipidimia: -Statin Hx of Hyperthyroidism: -COnt. synthorid Hx of PTSD and Schizoaffective disorder: -Cont. home meds DVT ppx: -Hep SubQ 5,000 units Q8 Nausea/vomiting: -Zofran and Reglan PRN Pending: -ECHO -[facility] report (Fax requesting records was sent yesterday)
[2017-12-01] MEDS ORDERED: SENSIPAR30 M1 PO (09:56)
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
--- NOTE | 2017-12-01 14:01 | Discharge Summary ---
Visit Information Visit Dates Admission Date: 11/29/17 Discharge Date: 12/01/17 Hospital Course Course Attending Physician: Randy Herndon MD Primary Care Physician: Patient Has No Primary Care Dr Hospital Course: 50 year old female with past medical history significant for diabetes mellitus on insulin, hypertension, PTSD, schizoaffective disorder, and primary hyperparathyroidism was sent in by a physician after evaluation of diabetes and hyperglycemia presented with hypotension and complaining of feeling lightheaded with recent nausea and vomiting. The patient's blood pressure on presentation was approximately 80/40 without expected reflex tachycardia. The patient actually had sinus bradycardia despite no negative chronotropic medications. The patient's labs were notable for a creatinine of 2.4 (previously normal baseline), calcium of 11.5, and hemoglobin a1c of 12. The patient did report a history of chills and episodes of vomiting over the preceding week suggestive of gastroenteritis. The patient was aggressively hydrated with over four liters of crystalloid. Her blood pressure and renal failure improved rapidly over the next 24-48 hours to a systolic blood pressure in the 120s and creatinine of 1.1. Her antihypertensive medications were held. Cardiology was consulted for sinus bradycardia. Patient reportedly had a negative cardiac catheterization done at an outside hospital and records were requested. The patient had negative serial troponins and no ischemic changes on EKGs. Lisinopril, lasix, Imdur and NSAIDs were all discontinued at the time of discharge because of hypotension and acute kidney injury. Lisinopril should be restarted as an outpatient with her history of diabetes and hypertension. Endocrinology was consulted because the patient has a history of poor compliance, poorly controlled diabetes with neuropathy and gastroparesis, and primary hyperparathyroidism. She has been reluctant to have a parathyroidectomy and is currently treated with cinacalcet. In 2016, both neck ultrasound and parathyroid scan were done which didn't show significant lesions suggestive of parathyroid adenoma. DEXA showed osteopenia in femoral neck. She could have parathyroid hyperplasia. Repeat ultrasound and thyroid scan were recommended to be performed as an outpatient and follow up with Dr. Carty. Her calcium improved with hydration to within normal limits. She is prescribed 14 units of levemir twice daily as an outpatient, with an a1c of 12. Her blood sugars were well controlled on 10 units of levemir with sliding scale coverage as an inpatient, raising the possibility of medication noncompliance with her insulin at home. She was discharged on 10 units of levemir twice a day. Her hyperglycemia, osmotic diuresis, gastroparesis with vomiting, and hypercalcemia likely all contributed to dehydration and hypotension. The importance of follow up with endocrinology and medication compliance were stressed to the patient. All her psychiatric medications were continued. The patient was instructed to follow up with endocrinology, psychiatry, and her primary care physician. 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) Beef Containing Products (Unknown Reaction to beef 11/28/17) Penicillins (VOMITING, DYSPNEA 11/28/17) adhesive tape (RASH 11/28/17) ampicillin (UNKNOWN 11/28/17) cat dander (UNKNOWN 11/28/17) dog dander (UNKNOWN 11/28/17) grass pollen (UNKNOWN 11/28/17) orange juice (MOUTH SORES 11/28/17) tomato (MOUTH SORES 11/28/17) tree and shrub pollen (UNKNOWN 11/28/17) amoxicillin (GI UPSET 11/28/17) prednisone (SWELLING WITH LONG COARSE 11/28/17) Disposition Summary Disposition Principal Diagnosis: Hypovolemic hypotension with recent vomiting and diabetic gastoparesis Acute kidney injury Hypercalcemia Sinus bradycardia Additional Diagnosis: Primary hyperparathyroidism Diabetes mellitus, insulin dependent Asthma Hypertension Schizoaffective disorder PTSD Hypothyroidism Opioid dependence for complex regional pain syndrome (right arm) History of alcohol dependence/abuse Discharge Disposition: home health services Discharge Instructions General Discharge Information Code Status: Full Code Patient's Diet: Diabetic diet Patient's Activity: As tolerated Follow-Up Instructions/Appts: Please follow up with Dr. Carty for your primary hyperparathyroidism and monitoring of your calcium. Please follow up with psychiatry and your primary care physician. Medications at Discharge Discharge Medications: Stop taking the following medications: Lisinopril (Lisinopril) 10 MG TABLET ORAL DAILY Folic Acid (Folic Acid) 1 MG TABLET ORAL DAILY Diclofenac Sodium (Voltaren) 1 % GEL..GRAM. On the skin DAILY Isosorbide Mononitrate (Isosorbide Mononitrate ER) 120 MG TAB.ER.24H ORAL DAILY Qty = 30 Ketoconazole (Nizoral) 2 % SHAMPOO On the skin 2 times per week as needed for SCALP LESIONS Furosemide (Furosemide) 40 MG TABLET ORAL as needed for DIURETIC Qty = 30 Meloxicam (Mobic) 15 MG TABLET ORAL DAILY as needed for PAIN Qty = 30 Continue taking these medications: Metoclopramide HCl (Reglan) 10 MG TABLET 1 Tablet ORAL 4 TIMES A DAY Instructions: 30 minutes before meals and bedtime Comments: NOT GIVEN IN HOSPITAL Omeprazole (Omeprazole) 40 MG CAPSULE.DR 1 Capsule ORAL DAILY Comments: Last Taken: 11/30/17 Time: 05 Mirtazapine (Remeron) 15 MG TABLET 1 Tablet ORAL Every night Comments: Last Taken: 11/30/17 Time: 2114 Nitroglycerin (Nitrostat) 0.4 MG TAB.SUBL 1 Tablet SUBLINGUAL As Directed as needed for CHEST PAIN Instructions: 1st sign of attack; may repeat every 5 minutes until relief; if pain persists after 3 tablets in 15 minutes, prompt medical att Comments: NOT GIVEN IN HOSPITAL Pregabalin (Lyrica) 150 MG CAPSULE 1 Capsule ORAL TWICE DAILY Comments: Last Taken: 12/01/17 Time: 08 Hydroxyzine Hydrochloride (Atarax) 25 MG TABLET 1 Tablet ORAL THREE TIMES DAILY Comments: NOT GIVEN IN HOSPITAL Perphenazine (Perphenazine) 2 MG TABLET 2.5 Tablet ORAL DAILY Qty = 60 Comments: NOT GIVEN IN HOSPITAL Perphenazine (Perphenazine) 4 MG TABLET 2.5 Tablet ORAL AT BEDTIME Qty = 30 Comments: NOT GIVEN IN HOSPITAL Cholecalciferol (Vitamin D3) (Vitamin D) 2,000 UNIT CAPSULE 1 Capsule ORAL DAILY Comments: NOT GIVEN IN HOSPITAL Prazosin HCl (Prazosin HCl) 2 MG CAPSULE 1 Capsule ORAL Every night Qty = 30 Comments: Last Taken: 11/30/17 Time: 2042 Simvastatin (Simvastatin*) 20 MG TABLET 1 Tablet ORAL Every night Days = 30 Comments: NOT GIVEN IN HOSPITAL Insulin Lispro (Humalog Kwikpen U-100) 100 UNIT/1 ML INSULN.PEN 1 Units Inject into fatty tissue SEE INSTRUCTIONS Days = 30 Instructions: Blood sugar dose/units less than 80 no coverage 80-150 6 151-200 8 201-250 10 251-300 12 301-350 14 351-400 16 more than 400 18 and call doctor Comments: NOTTAKEN Insulin Detemir (Levemir) 100 UNIT/ML VIAL 10 Units Inject into fatty tissue TWICE DAILY Comments: Last Taken: 12/01/17 Time: 823 Albuterol Sulfate (Albuterol Sulfate) 2.5 MG/3 ML (0.083 %) VIAL.NEB 1 Vial Inhale Solution as needed for ASTHMA Comments: Last Taken: 12/01/17 Time: 041 Albuterol Sulfate (Proventil Hfa) 90 MCG HFA.AER.AD 2 Puff Inhale through mouth Q4H as needed for ASTHMA Comments: NOT GIVEN IN HOSPITAL Budesonide/Formoterol Fumarate (Symbicort 80-4.5 Mcg Inhaler) 80 MCG-4.5 MCG/ ACTUATION HFA.AER.AD 2 Puff Inhale through mouth TWICE DAILY Comments: NOT GIVEN IN HOSPITAL Montelukast Sodium (Singulair) 10 MG TABLET 1 Tablet ORAL DAILY Comments: Last Taken: 11/30/17 Time: 2042 Cyclosporine (Restasis) 0.05 % DROPERETTE 1 Drop Both Eyes TWICE DAILY Qty = 60 Comments: NOT GIVEN IN HOSPITAL Naltrexone HCl (Naltrexone HCl) 50 MG TABLET 1 Tablet ORAL DAILY Qty = 30 Comments: NOT GIVEN IN HOSPITAL Aspirin (Ecotrin*) 81 MG TABLET.DR 1 Tablet ORAL DAILY Comments: Last Taken: 12/01/17 Time: 08 Mometasone Furoate (Nasonex) 50 MCG SPRAY.PUMP 2 [place] Both sides of nose DAILY Comments: NOT GIVEN IN HOSPITAL Cannabis (Marijuana Oil) 1 amp AMP Inhale through mouth As Directed as needed for PAIN Comments: NOT GIVEN IN HOSPITAL Solifenacin Succinate (Vesicare) 10 MG TABLET 1 Tablet ORAL DAILY Qty = 30 Comments: NOT GIVEN IN HOSPITAL Ondansetron (Zofran Odt) 4 MG TAB.RAPDIS 1 Tablet SUBLINGUAL THREE TIMES DAILY as needed for nausea Qty = 10 Comments: NOT GIVEN IN HOSPITAL Levothyroxine Sodium (Levothyroxine Sodium) 200 MCG TABLET 1 Tablet ORAL DAILY Qty = 60 Comments: Last Taken: 12/01/17 Time: 0604 Bupropion HCl (Wellbutrin Sr) 150 MG TABLET.ER 1 Tablet ORAL DAILY Qty = 30 Comments: Last Taken: 12/01/17 Time: 0824 Start taking the following new medications: Cinacalcet HCl (Sensipar) 30 MG TABLET 30 Milligram ORAL TWICE DAILY Qty = 60 No Refills The following medications have been changed: Old: Cinacalcet HCl (Sensipar) 30 MG TABLET 1 Tablet ORAL TWICE DAILY Qty = 30 New: Cinacalcet HCl (Sensipar) 30 MG TABLET 1 Tablet ORAL DAILY Qty = 30 Comments: Last Taken:11/27/15 Time:9PM Copies To: Evangelist Hernandez MD; Miquel Carty MD Attending Review Statement Documenting Attending: Randy Herndon MD 1 Tablet ORAL DAILY Qty = 30 Comments: Last Taken: 12/01/17 Time: 0824 Start taking the following new medications: Cinacalcet HCl (Sensipar) 30 MG TABLET 30 Milligram ORAL TWICE DAILY Qty = 60 No Refills The following medications have been changed: Old: Cinacalcet HCl (Sensipar) 30 MG TABLET 1 Tablet ORAL TWICE DAILY Qty = 30 New: Cinacalcet HCl (Sensipar) 30 MG TABLET 1 Tablet ORAL DAILY Qty = 30 Comments: Last Taken:11/27/15 Time:9PM Copies To: Carloz CERVANTES,Miquel Rodriguez MD Review Statement Documenting Attending: Randy Herndon MD
--- NOTE | 2017-12-01 15:58 | PN- Cardiology ---
Subjective Subjective: No evidence of any further cardiac issues. Blood pressure and heart rate stable Objective Vital Signs and I&Os Vital Signs Date Time Temp Pulse Resp B/P B/P Pulse O2 O2 Flow FiO2 Mean Ox Delivery Rate 12/01 1130 98 Room Air 12/01 0651 98.1 59 20 128/78 93 Room Air 11/30 2043 56 124/70 11/30 1805 102/68 11/30 1600 98.2 60 18 92/50 95 Room Air Intake & Output 12/01 1600 12/01 0800 12/01 0000 11/30 1600 11/30 0800 05 0000 Intake Total 085 864 3104 2200 1105 0 Output Total Balance 290 996 4277 2200 1105 0 Intake, IV 721 935 1995 1000 625 Intake, Oral 650 761 785 9846 480 0 Number 1 Bowel Movements Patient 187 lb 183 lb Weight Weight Bed scale Bed scale Measurement Method Current Medications: Current Medications Sig/Zoila Start time Last Medication Dose Route Stop Time Status Admin Acetaminophen 650 MG .STK-MED ONE 12/01 417 DC PO 12/01 041 Acetaminophen 650 MG Q6P PRN 11/29 2245 DCD 12/01 PO 0419 Albuterol Sulfate 3 ML BID 11/30 2099 DCD 12/01 INH 1126 Albuterol Sulfate 2 PUF Q4H PRN 11/29 2330 DCD INH Aspirin 81 MG .STK-MED ONE 12/01 0653 DC PO 12/01 0654 Aspirin Buffered 81 MG DAILY 11/30 899 DCD 12/01 PO 0825 Benztropine Mesylate 0.5 MG AT BEDTIME 11/30 2099 DCD 11/30 PO 204 Bupropion HCl 150 MG DAILY 12/01 899 DCD 12/01 PO 0824 Cinacalcet 30 MG DAILY 11/30 1056 DCD 12/01 PO 0824 Fluphenazine HCl 10 MG AT BEDTIME 11/30 2099 DCD 11/30 PO 2042 Fluphenazine HCl 5 MG DAILY 11/30 105 DCD 12/01 PO 0824 Heparin Sodium 5,000 UNIT Q8 11/30 599 DCD (Porcine) SC Hydroxyzine HCl 25 MG TID PRN 11/30 1100 DCD PO Insulin Aspart 0 TIDAC 11/30 1700 DCD 05 SC 1140 Insulin Detemir 10 UNITS BID 11/30 2100 DCD 12/01 SC 0824 Ipratropium [place] 2.5 ML BID 11/30 2099 DCD 11/30 INH 205 Levothyroxine Sodium 0.2 MG DAILY AC 11/30 699 DCD 12/01 PO 06 Magnesium Oxide 400 MG ONE ONE 12/01 899 DC 12/01 PO 12/01 900 09 Magnesium Sulfate 1 GM ONCE ONE 12/01 899 DC 12/01 Dextrose/Water 100 ML IV 12/01 1259 0954 Metoclopramide HCl 10 MG 4 TIMES/DAY PRN 11/30 1500 DCD PO Mirtazapine 15 MG QPM 11/30 2099 DCD 11/30 PO 2115 Montelukast Sodium 10 MG AT BEDTIME 11/30 2099 DCD 11/30 PO 204 Nicotine 7 MG DAILY 11/30 899 DCD TOP Omeprazole 40 MG DAILY AC 11/30 699 DCD 11/30 PO 0516 Ondansetron HCl 4 MG Q8P PRN 11/29 2245 DCD IV Prazosin HCl 2 MG AT BEDTIME 11/30 2099 DCD 11/30 PO 204 Pregabalin 150 MG BID 11/30 899 DCD 12/01 PO 0824 Sodium Chloride 1,000 ML Q8H 11/30 0130 DC 11/30 IV 11/30 2200 1722 Results Last 48 Hrs of Labs/Mics: Laboratory Tests 12/01/17 0705: Anion Gap 8, Estimated GFR 52 L, BUN/Creatinine Ratio 14.5, Calcium 9.9, Phosphorus 2.5, Magnesium 1.5 L 11/30/17 0645: Troponin I Cancelled 11/30/17 0645: Anion Gap 8, Estimated GFR 32 L, BUN/Creatinine Ratio 18.8, Troponin I < 0.01, WBC Cancelled, RBC Cancelled, Hgb Cancelled, Hct Cancelled, MCV Cancelled, MCH Cancelled, MCHC Cancelled, RDW Cancelled, Plt Count Cancelled, MPV Cancelled 11/30/17 0047: Anion Gap 8, Estimated GFR 28 L, BUN/Creatinine Ratio 20.0, Troponin I < 0.01 11/29/17 1917: Urine Opiates Screen < 100, Methadone Screen 54, Barbiturate Screen < 60, Ur Phencyclidine Scrn < 6.00, Amphetamines Screen 409, U Benzodiazepines Scrn < 85, Urine Cocaine Screen < 50, Urine Cannabis Screen 69.30 H, Urine Color YEL, Urine Clarity HAZY H, Urine pH 6.0, Ur Specific [place] 1.015, Urine Protein NEG, Urine Ketones NEG, Urine Nitrite NEG, Urine Bilirubin NEG, Urine Urobilinogen 0.2, Ur Leukocyte Esterase NEG, Ur Microscopic SEDIMENT EXAMINED, Urine RBC RARE, Urine WBC 1-3 H, Ur Epithelial Cells MANY H, Urine Bacteria MANY H, Urine Mucus RARE, Urine Hemoglobin NEG, Urine Glucose 500 H 11/29/17 1915: Lactic Acid 0.7 11/29/17 1610: Anion Gap 12, Estimated GFR 21 L, BUN/Creatinine Ratio 17.9, Glucose 146 H, Hemoglobin A1c 12.0 H, Lactic Acid 1.7, Calcium 11.5 H, Phosphorus 5.2 H, Magnesium 1.8, Total Bilirubin 0.8, AST 22, ALT 24, Alkaline Phosphatase 101, Total Protein 7.2, Albumin 4.2, Globulin 3.0, Albumin/Globulin Ratio 1.4, Amylase 33, Lipase 27, TSH 4.300 H, Free T4 2.45 H, Cortisol PM Sample 21.7 H , CBC w Diff NO MAN DIFF REQ, RBC 4.63, MCV 86.9, MCH 28.5, MCHC 32.8 L, RDW 14.2, MPV 10.2, Gran % 67.8, Lymphocytes % 23.2, Monocytes % 6.2, Eosinophils % 2.4, Basophils % 0.4, Absolute Granulocytes 7.1 H, Absolute Lymphocytes 2.4, Absolute Monocytes 0.7 H, Absolute Eosinophils 0.3, Absolute Basophils 0 Microbiology 11/30 0513 NASOPHARYN: Influenza Virus A & B Rapid Smear - COMP Assessment/Plan Assessment/Plan Assessment: 1. Transient hypotension and bradycardia 2. Persistent vomiting of unclear etiology 3. Acute renal insufficiency-creatinine improved 1.7 today. 4. Diabetes with associated neuropathy and possible gastroparesis 5. History of hypertension, hyperlipidemia, hypothyroidism, psychiatric issues 6. Hypercalcemia Recommendations: -Continue telemetry monitoring -Echocardiogram was not performed. This can be performed later as an outpatient -The patient reports having a cardiac catheterization at [facility] in [place] in the recent past. 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 Continue telemetry? No
== END 2017-12-01 15:20 | disposition home health service (06) | DRG 315 ==
LOC: ERH 14:55 → CRI 22:49 → ERHI 22:49 → 1NO 22:49 → ENRESERV 11-30 00:08 → CRI 11-30 01:10 → 1NO 11-30 01:22 → ENTRNSPT 11-30 07:43 → EDTRNSPT 11-30 08:02 → EDTRNSPTSTS 11-30 08:02 → CRI 11-30 08:14 → CMPTRNSPT 11-30 08:23 → ENTRNSPT 11-30 22:19 → EDTRNSPTSTS 11-30 22:24 → EDTRNSPT 11-30 22:24 → 1NO 11-30 22:38 → CMPTRNSPT 11-30 22:40 → ENPENDDIS 12-01 14:01 → ENTRNSPT 12-01 15:06 → 1NO 12-01 15:20 → EDTRNSPTSTS 12-01 15:29 → EDTRNSPT 12-01 15:29 → CMPTRNSPT 12-01 15:43
PROVIDERS: Physician Assistant Medical
DX: I95.9 Hypotension, unspecified (principal); N17.9 Acute kidney failure, unspecified; E11.43 Type 2 diabetes mellitus with diabetic autonomic (poly)neuropathy; K31.84 Gastroparesis; E11.65 Type 2 diabetes mellitus with hyperglycemia; E83.52 Hypercalcemia; F11.20 Opioid dependence, uncomplicated; G90.50 Complex regional pain syndrome I, unspecified; F25.9 Schizoaffective disorder, unspecified; K52.9 Noninfective gastroenteritis and colitis, unspecified; E86.0 Dehydration; E03.9 Hypothyroidism, unspecified; E78.5 Hyperlipidemia, unspecified; Z72.0 Tobacco use; J45.909 Unspecified asthma, uncomplicated; W19.XXXA Unspecified fall, initial encounter; F10.21 Alcohol dependence, in remission; F19.11 Other psychoactive substance abuse, in remission; R11.2 Nausea with vomiting, unspecified; R00.1 Bradycardia, unspecified; Z79.4 Long term (current) use of insulin; F43.10 Post-traumatic stress disorder, unspecified; E66.9 Obesity, unspecified; Z68.30 Body mass index [BMI] 30.0-30.9, adult; Z88.1 Allergy status to other antibiotic agents; Z88.8 Allergy status to other drugs, medicaments and biological substances; Z79.82 Long term (current) use of aspirin; Z79.51 Long term (current) use of inhaled steroids; Z62.810 Personal history of physical and sexual abuse in childhood; Z90.49 Acquired absence of other specified parts of digestive tract
CPT/HCPCS: 1NP; ERO; 36415; 36592; 71045; 80307; 81001; 82436; 87040; 87804; 87804-59; 93005; 93010; 96374; 96375; 97116-GO; 97161-GP; 97530-GO; J0131; J1644; J2405; J3490

== ENCOUNTER 2018-01-10 17:16 | Emergency (ER) | payer OTHER ==
[~2018-01-10] VITALS: Ht 152.4 cm; Wt 81.6 kg
[~2018-01-10 17:16] MED LIST changes: +WELLBUTRIN SR150 M1 PO
[2018-01-10 17:53] LABS: ABSOLUTE BASOPHIL COUNT 0.1 /CUMM (0.0-0.2); ABSOLUTE EOSINOPHIL COUNT 0.3 /CUMM (0.0-0.7); ABSOLUTE GRANULOCYTE CT 7.7 /CUMM (1.4-6.5); ABSOLUTE LYMPH COUNT 2.1 /CUMM (1.2-3.4); ABSOLUTE MONOCYTE COUNT 0.5 /CUMM (0.10-0.60); BASOPHIL % 0.8 % (0.0-2.0); EOSINOPHIL % 2.6 % (0-5); GRANULOCYTE % 72.5 % (42.2-75.2); HEMATOCRIT 41.7 % (37-47); MEAN CORPUSCULAR HGB 28.5 PG (27.0-31.0); MEAN CORPUSCULAR HGB CONC 33.3 G/DL (33.0-37.0); MEAN CORPUSCULAR VOLUME 85.8 FL (81.0-99.0); MEAN PLATELET VOLUME 9.9 FL (7.4-10.4); PLATELET COUNT 244 /CUMM (130-400); RBC DISTRIBUTION WIDTH 14.4 % (11.5-14.5); RED BLOOD CELL CT 4.87 /CUMM (4.20-5.40); WHITE BLOOD CELL COUNT 10.7 /CUMM (4.8-10.8)
[2018-01-10 18:01] LABS: PT 10.1 SEC (9.4-12.5); PTT 32 SEC (25-37)
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
--- NOTE | 2018-01-10 20:16 | ULTRASOUND REPORT ---
EXAMINATION: ULTRASOUND PELVIC, COMPLETE CLINICAL INFORMATION: Postmenopausal bleeding and cramping. COMPARISON: None. TECHNIQUE: Transvaginal: Patient declined transvaginal portion of exam. Transabdominal: Performed only. Spectral Doppler and color Doppler exam was utilized. LMP: Uncertain FINDINGS: Exam limited due to bowel gas and body habitus. UTERUS: Unremarkable. Uterus is anteverted. Uterus measures 8.4 x 3.5 x 4.3 cm. The endometrial thickness is 0.2 cm. Cervical length 2.7 cm. ADNEXA: Neither the right nor the left ovary is seen. There is no adnexal abnormality. Cul-de-sac: No Fluid IMPRESSION: Normal ultrasound of the uterus. Neither the right nor the left ovary is seen. There is no adnexal abnormality.
[2018-01-10 21:12] VITALS: BP 136/73
== END 2018-01-10 21:45 ==
LOC: ERH 17:16
PROVIDERS: Physician Assistant Medical
DX: N95.0 Postmenopausal bleeding (principal)
CPT/HCPCS: 81001

== ENCOUNTER 2018-02-12 12:24 | Emergency (ER) | payer OTHER ==
[~2018-02-12] VITALS: Ht 152.4 cm; Wt 81.2 kg
[2018-02-12 12:39] VITALS: BP 124/88
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
--- NOTE | 2018-02-12 13:25 | CT SCAN REPORT ---
EXAMINATION: CT HEAD WITHOUT CONTRAST CLINICAL INFORMATION: Headache for 3 weeks COMPARISON: Previous head CT most recent November 2017 TECHNIQUE: Contiguous axial imaging was performed from the skull base to vertex without intravenous administration of contrast. DLP: 588 mGy-cm FINDINGS: There is no evidence of an extra-axial collection. There is no evidence of intra or extra-axial hemorrhage. The ventricles and extra-axial CSF spaces are appropriate. 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 Garza-white matter differentiation is otherwise normal. No mass, mass effect or acute infarct is seen. Review at bone windows is unremarkable. Visualized mastoid air cells, middle ears and paranasal sinuses are clear. IMPRESSION: No acute intracranial pathology. 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
[2018-02-12] MEDS ORDERED: FLUPHENAZINE HCL5 M1 PO (13:33)
[2018-02-12] MEDS ORDERED: FLUPHENAZINE HC10 M1 PO (13:33)
[2018-02-12] MEDS ORDERED: FLUPHENAZI25 MG/1 ML IM (13:33)
[2018-02-12 13:34] LABS: ABSOLUTE BASOPHIL COUNT 0.1 /CUMM (0.0-0.2); ABSOLUTE EOSINOPHIL COUNT 0.2 /CUMM (0.0-0.7); ABSOLUTE GRANULOCYTE CT 4.5 /CUMM (1.4-6.5); ABSOLUTE LYMPH COUNT 2.5 /CUMM (1.2-3.4); ABSOLUTE MONOCYTE COUNT 0.5 /CUMM (0.10-0.60); BASOPHIL % 0.8 % (0.0-2.0); EOSINOPHIL % 3.1 % (0-5); GRANULOCYTE % 57.5 % (42.2-75.2); HEMATOCRIT 44.7 % (37-47); MEAN CORPUSCULAR HGB CONC 33.7 G/DL (33.0-37.0); MEAN CORPUSCULAR VOLUME 83.2 FL (81.0-99.0); PLATELET COUNT 218 /CUMM (130-400); RBC DISTRIBUTION WIDTH 14.2 % (11.5-14.5); RED BLOOD CELL CT 5.37 /CUMM (4.20-5.40); WHITE BLOOD CELL COUNT 7.8 /CUMM (4.8-10.8)
[2018-02-12] MEDS ORDERED: LEVOTHYROXINE175 MCG PO (13:34)
[2018-02-12] MEDS ORDERED: POLYETHYLENE G255 GM PO (13:35)
[2018-02-12] MEDS ORDERED: BENZTROPINE ME0.5 M1 PO (13:35)
[2018-02-12] MEDS ORDERED: MELATONIN10 M2 PO (13:35)
[2018-02-12] MEDS ORDERED: ULTRAM50 M1 PO (14:30)
== END 2018-02-12 14:53 ==
LOC: ERH 12:24
PROVIDERS: Physician Assistant Medical
DX: R51 Headache (principal)
CPT/HCPCS: 81001

== ENCOUNTER 2018-04-05 01:44 | Emergency (ER) | payer OTHER ==
[~2018-04-05 01:44] MED LIST changes: +BENZTROPINE ME0.5 M1 PO; +DICYCLOMINE HCL10 M1 PO; +FLUPHENAZI25 MG/1 ML IM; +FLUPHENAZINE HC10 M1 PO; +FLUPHENAZINE HCL5 M1 PO; +LEVOTHYROXINE175 MCG PO; +MELATONIN10 M2 PO; +OMEPRAZOLE20 M3 PO; +POLYETHYLENE G255 GM PO; +ULTRAM50 M1 PO
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
[2018-04-05 02:40] LABS: ABSOLUTE BASOPHIL COUNT 0 /CUMM (0.0-0.2); ABSOLUTE EOSINOPHIL COUNT 0.2 /CUMM (0.0-0.7); ABSOLUTE GRANULOCYTE CT 6.2 /CUMM (1.4-6.5); ABSOLUTE LYMPH COUNT 2.4 /CUMM (1.2-3.4); ABSOLUTE MONOCYTE COUNT 0.6 /CUMM (0.10-0.60); BASOPHIL % 0.4 % (0.0-2.0); EOSINOPHIL % 2.3 % (0-5); GRANULOCYTE % 65.4 % (42.2-75.2); HEMATOCRIT 44.5 % (37-47); MEAN CORPUSCULAR HGB 27.4 PG (27.0-31.0); MEAN PLATELET VOLUME 9.6 FL (7.4-10.4); PLATELET COUNT 233 /CUMM (130-400); RED BLOOD CELL CT 5.36 /CUMM (4.20-5.40); WHITE BLOOD CELL COUNT 9.4 /CUMM (4.8-10.8)
--- NOTE | 2018-04-05 03:45 | CT SCAN REPORT ---
EXAMINATION: CT ABDOMEN AND PELVIS WITH CONTRAST CLINICAL INFORMATION: Abdominal pain. Nausea and vomiting. COMPARISON: CT scan abdomen pelvis March 04, 2018 TECHNIQUE: Multidetector volumetric imaging was performed of the abdomen and pelvis following IV administration of 95 mL of Optiray 320 intravenous contrast. Sagittal and coronal reformatted images were obtained on the technologist's workstation. DLP: 592.19 mGy-cm FINDINGS: LUNG BASES: The visualized lung bases are unremarkable. LIVER, GALLBLADDER, AND BILIARY TREE: The liver is normal in size, shape, and attenuation. No focal hepatic lesion or biliary ductal dilatation is present. Status post cholecystectomy. PANCREAS: Unremarkable. SPLEEN: Unremarkable. ADRENAL GLANDS: Unremarkable. KIDNEYS AND URETERS: The kidneys are normal in size, shape, and attenuation. No hydronephrosis, hydroureter, or calculi seen. No perinephric stranding. BLADDER: Unremarkable. GASTROINTESTINAL TRACT: The small and large bowel are unremarkable. The appendix is unremarkable. ABDOMINAL WALL: No significant hernia is appreciated. LYMPH NODES: Normal. VASCULAR: Unremarkable. PELVIC VISCERA: Uterus is anteverted. There is no adnexal abnormality. OSSEOUS STRUCTURES: Multilevel degenerative spondylosis spine with endplate spurring and facet joint arthrosis. IMPRESSION: No acute abnormality CT scan abdomen and pelvis.
[2018-04-05 04:35] VITALS: BP 143/85
== END 2018-04-05 04:35 ==
LOC: ERH 01:44
PROVIDERS: Emergency Medicine
DX: R10.84 Generalized abdominal pain (principal); R11.2 Nausea with vomiting, unspecified; R51 Headache; H53.149 Visual discomfort, unspecified; F17.210 Nicotine dependence, cigarettes, uncomplicated; I10 Essential (primary) hypertension; J45.909 Unspecified asthma, uncomplicated
CPT/HCPCS: 74177; 81001; 96374; 96375; J1200; J2405; J2765